=== PATIENT | female | born 1955 ===

== ENCOUNTER → 2021-05-01 11:46 | Outpatient (CLI) | payer OTHER, SELFPAY ==
--- NOTE | 2021-05-01 11:50 | DI.RAD.S_ITS ---
PROCEDURE: XR FOOT LT MIN 3V INDICATIONS: foot wound infection TECHNIQUE: 3 views of the foot were acquired. COMPARISON: None. FINDINGS: Bones: No acute fractures or dislocations. No suspicious bony lesions. 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 In addition of the 2nd ray at the proximal interphalangeal joint is seen. There is pes planus. Hammertoe deformities are noted. No focal cortical destruction is seen to suggest osteomyelitis radiographically. Soft tissues: Nonspecific soft tissue edema is seen in the forefoot. IMPRESSION: There is no cortical destruction is seen to suggest osteomyelitis radiographically. Chronic changes as described above. Dictated by: Bronson Pike M.D. on 05/01/2021 at 12:06 Approved by: Bronson Pike M.D. on 05/01/2021 at 12:08
== END ==
PROVIDERS: Referring Provider Nurse Practitioner Family; Visit Provider Nurse Practitioner Family
DX: S91.302A Unspecified open wound, left foot, initial encounter (principal)
CPT/HCPCS: 73630; 87070; 87077; 87147; 87186; 87205

== ENCOUNTER → 2021-05-01 11:49 | Outpatient (CLI) | payer OTHER, SELFPAY | PROVIDERS: Visit Provider Nurse Practitioner Family | DX: S91.309A Unspecified open wound, unspecified foot, initial encounter (principal) | CPT/HCPCS: 87070; 87075; 87077; 87147; 87186; 87205 ==

== ENCOUNTER → 2021-05-13 10:36 | Outpatient (CLI) | payer OTHER, SELFPAY | PROVIDERS: Family Provider Nurse Practitioner Family; Referring Provider Nurse Practitioner Family; Visit Provider Family Medicine | DX: E11.621 Type 2 diabetes mellitus with foot ulcer (principal); L97.522 Non-pressure chronic ulcer of other part of left foot with fat layer exposed; E11.49 Type 2 diabetes mellitus with other diabetic neurological complication | CPT/HCPCS: 11042; 87070; 87075; 87077; 87186; 87205; 99204; 99214 ==

== ENCOUNTER → 2021-05-20 09:27 | Outpatient (CLI) | payer OTHER, SELFPAY | PROVIDERS: Family Provider Nurse Practitioner Family; Visit Provider Family Medicine | DX: E11.621 Type 2 diabetes mellitus with foot ulcer (principal); L97.522 Non-pressure chronic ulcer of other part of left foot with fat layer exposed; E11.49 Type 2 diabetes mellitus with other diabetic neurological complication; L08.9 Local infection of the skin and subcutaneous tissue, unspecified | CPT/HCPCS: 11042; 93922; 99214 ==

== ENCOUNTER → 2021-05-27 11:54 | Outpatient (CLI) | payer OTHER, SELFPAY | PROVIDERS: Family Provider Nurse Practitioner Family; Referring Provider Nurse Practitioner Family; Visit Provider Family Medicine | DX: E11.621 Type 2 diabetes mellitus with foot ulcer (principal); L97.522 Non-pressure chronic ulcer of other part of left foot with fat layer exposed; E11.49 Type 2 diabetes mellitus with other diabetic neurological complication | CPT/HCPCS: 11042 ==

== ENCOUNTER → 2021-06-08 09:53 | Outpatient (CLI) | payer OTHER, SELFPAY | PROVIDERS: Family Provider Nurse Practitioner Family; Visit Provider Family Medicine | DX: E11.621 Type 2 diabetes mellitus with foot ulcer (principal); L97.522 Non-pressure chronic ulcer of other part of left foot with fat layer exposed; E11.49 Type 2 diabetes mellitus with other diabetic neurological complication | CPT/HCPCS: 11042 ==